=== PATIENT | female | born 1995 | race Caucasian/White ===

== ENCOUNTER 2020-01-11 22:57 | Emergency (ER) | payer OTHER, SELFPAY ==
[2020-01-11 23:11] VITALS: BP 169/122; PULSE 95; RESP 18; TEMP 36.7; O2SAT 99; BMI 30.8
--- NOTE | 2020-01-11 23:22 | ECG_ITS ---
Measurements Intervals [place] Rate: 109 P: 49 NE: 130 QRS: 14 QRSD: 90 T: -12 QT: 299 QTc: 403 SINUS TACHYCARDIA POSSIBLE LEFT ATRIAL ENLARGEMENT [-0.1mV P WAVE IN V1/V2] NONSPECIFIC ST & T-WAVE ABNORMALITY ABNORMAL RHYTHM ECG Compared to ECG 06/05/2019 03:24:03 No significant changes Electronically Signed On 01-12-2020 20:02:02 CDT by Krish Roldan M.D. [email or web address]
--- NOTE | 2020-01-11 23:22 | XR_ITS ---
WS: [id number] XR chest 1V portable [id number] REASON FOR EXAM: cp FINDINGS: The heart and mediastinal interfaces normal. The lung scott are well aerated. No pneumonia, pleural effusion, pulmonary edema, No interval changes since January 17, 2019. The hilum and apices normal. XR/XR chest 1V portable [id number] IMPRESSION: Negative chest for acute pathology.
--- NOTE | 2020-01-11 23:23 | ED_ITS ---
HPI - Chest Pain General: Chief Complaint: Chest Pain Stated Complaint: cp, arm pain Time Seen by Provider: 01/11/20 23:14 History of Present Illness: HPI narrative: Patient comes in complain about chest pain that started at 0 700 yesterday morning and is been intermittent since then but it was worse tonight. Says it is in her left chest goes into her left arm does not go in the neck denies nausea and vomiting or shortness of breath. Does have a history of pulmonary embolus with her . And she is worried it might be pulmonary embolus again denies any medications change in activities food or other related things complaint: chest pain Pertinent past history: other (Prior pulmonary embolus during ) Onset (ago): day(s) (Yesterday and today) Timing of current episode: increasing Prior episodes: Yes Onset: during rest Pain location: left chest Pain radiation: left arm Severity: moderate Quality: sharp Relieving factors: nothing Exacerbating factors: nothing Associated symptoms: Reports no associated symptoms; Deny abdominal pain, dyspnea, fever(s), nausea or vomiting Review of Systems Const: Denies: fever, chills or body aches Eyes: Denies: change in vision or blurry vision ENMT: Denies: throat pain or nasal congestion Card: Reports: chest pain (And left arm pain); Denies: shortness of breath on exertion Resp: Denies: shortness of breath, productive cough or non-productive cough GI: Denies: abdominal pain, nausea or vomiting Musc: Denies: extremity pain Skin/Breast: Denies: rash Neuro: Denies: headache Psych: Denies: anxiety or depression Tay/Lymph: Denies: easy bruising PFS ED PFSH: Social History Smoking and tobacco status: never smoked Female Reproductive History: Date of last menstrual period: 01/02/20 Physical Exam Const: COMMON NORMALS: no apparent distress, average body habitus and oriented x3 HENMT: COMMON NORMALS: normocephalic HEAD & SCALP: normal to inspection and normocephalic FACE & SINUS: normal facial exam Eye: COMMON NORMALS: conjunctivae normal GENERAL EYE: normal appearance of both eyes CONJUNCTIVA: Yes conjunctivae normal Neck/C-Spine: COMMON NORMALS: no JVD Chest: COMMONS NORMALS: inspection of chest normal Resp: COMMON NORMALS: normal respiratory effort and clear to auscultation bilaterally AUSCULTATION: clear to auscultation bilaterally Cardio: COMMON NORMALS: no JVD, regular rate and regular rhythm RATE: regular rate RHYTHM: regular rhythm GI: COMMON NORMALS: normal to inspection, nondistended, normoactive bowel so unds Extremity: COMMON NORMALS: normal to inspection and full ROM Neuro: COMMON NORMALS: oriented x3 Course Vital Signs: Vital signs: Vital Signs Temperature 98.1 F 01/11/20 23:11 Pulse Rate 95 01/11/20 23:11 Respiratory Rate 18 01/11/20 23:11 Blood Pressure 169/122 01/11/20 23:11 Pulse Oximetry 99 01/11/20 23:11 MDM - Chest Pain EKG Data^: EKG 1: EKG interpretation date: 01/11/20 EKG interpretation time: 23:27 Interpretation: Sinus tachycardia ventricular rate of [address] and T wave abnormalities QRS durations 90 ms [place] intervals 130 ms Discharge Plan Discharge Prescriptions: No Action No Known Home Medications RF: 0 Coding Level of Care Code 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
[2020-01-11 23:41] VITALS: PULSE 89; RESP 16; O2SAT 98
[2020-01-11 23:42] LABS: Basophils % 0.3 %; Eosinophils # 0.1 10^3/uL (0.0-0.8); Eosinophils % 0.8 %; Hematocrit 38.8 % (37.0-47.0); Hemoglobin 12.7 g/dL (11.5-15.3); Lymphocytes # 2.6 10^3/uL (0.8-4.8); Lymphocytes % 20.2 %; Mean Corpuscular HGB Conc 32.7 g/dL (30.0-36.0); Mean Corpuscular Hemoglobin 27.1 pg (28.0-34.0); Mean Corpuscular Volume 82.7 fL (81-99); Mean Platelet Volume 9.7 fL (7.4-10.4); Monocytes # 0.9 10^3/uL (0.2-0.9); Monocytes % 6.7 %; Neutrophils # 9.3 10^3/uL (1.8-7.7); Neutrophils % 71.7 %; Nucleated Red Blood Cells % 0 %; Platelet Count 464 10^3/cmm (130-400); Red Blood Count 4.69 10^6/uL (4.1-5.3); Red Cell Distribution Width 13.2 % (12.1-15.1)
[2020-01-11 23:45] VITALS: PULSE 107; RESP 16; O2SAT 97
[2020-01-11 23:48] LABS: INR 0.93 (0.8-1.2)
[2020-01-11 23:50] VITALS: PULSE 98; RESP 15; O2SAT 98
[2020-01-11 23:54] LABS: Alanine Aminotransferase 17 U/L (0-33); Albumin Level 5.1 g/dL (3.5-5.2); Alkaline Phosphatase 91 IU/L (35-105); Anion Gap 19.8 (5-19); Aspartate Amino Transferase 16 U/L (0-32); Blood Urea Nitrogen 10 mg/dL (6-20); Calcium 9.9 mg/dL (8.5-10.5); Carbon Dioxide 23 mmol/L (22-29); Chloride 102 mmol/L (98-107); Globulin 2.8 g/dL (1.3-4.6); Glomerular Filtration Rate 89.7 mL/min (90-130); Glucose 122 mg/dL (65-115); Osmolality Calculated 289 mOsm/kg (285-295); Potassium 3.8 mmol/L (3.5-5.1); Sodium 141 mmol/L (136-145); Total Bilirubin 0.2 mg/dL (0.15-1.2); Total Protein 7.9 g/dL (6.6-8.7)
[2020-01-11 23:55] VITALS: PULSE 99; RESP 16; O2SAT 98
[2020-01-11 23:55] LABS: Troponin(5th) Baseline 6 ng/mL (0-10)
[2020-01-12] VITALS (20 sets, daily range): BP systolic 108–137; BP diastolic 80–89; PULSE 73–117; RESP 11–26; O2SAT 97–99
[2020-01-12 00:24] LABS: HCG Qualitative Urine. Negative (Negative)
[2020-01-12 01:15] LABS: Bilirubin Urine Neg (NEGATIVE); Blood Urine Neg (Negative); Glucose Urine UA Norm (Normal); Ketones Urine Negative (Negative); Nitrate Urine Negative (Negative); Protein Urine Neg (Negative); Specific Gravity, Urine 1.015 (1.005-1.030); Urine Appearance SL Hazy (CLEAR); Urine Color Yellow (Yellow); Urobilinogen Urine Norm (Negative); pH Urine 5 (5-7)
[2020-01-12 01:16] LABS: Add Urine Microscopic? YES; Leukocyte Esterase Urine 2+ (Negative)
[2020-01-12 01:19] LABS: Troponin 5 2HR Delta 0 ABS# (0-10)
[2020-01-12 01:19] LABS: RBC Urine 0-4 /hpf (0-2); WBC Urine 25-40 /hpf (0-5)
[2020-01-12 01:20] LABS: Bacteria Urine 2+; Mucus Urine TRACE
[2020-01-12 01:21] LABS: Add Urine Culture? Yes
== END 2020-01-12 01:40 | disposition home or self-care (01) ==
PROVIDERS: Emergency Provider Nurse Practitioner Family; PCP Family Medicine
DX: R07.9 Chest pain, unspecified (principal)
CPT/HCPCS: 12345; 71045; 80053; 81001; 81025; 84484; 85025; 85378; 85610; 87077; 87086; 87186; 93005; 99283; 99284

== ENCOUNTER 2020-06-09 15:56 | Outpatient (CLI) | payer OTHER, SELFPAY ==
--- NOTE | 2020-06-09 | XRR_ITS ---
PROCEDURE INFORMATION: Exam: XR Chest, 2 Views Exam date and time: 06/09/2020 4:04 PM Age: 25 years old Clinical indication: Chest pain; Type not specified; Additional info: Chest pain x 2 month TECHNIQUE: Imaging protocol: XR of the chest Views: 2 views. COMPARISON: CR XR chest 1V portable [id number] 01/11/2020 11:54 PM FINDINGS: Lungs: Unremarkable. No consolidation. Pleural space: Unremarkable. No pleural effusion. No pneumothorax. Heart/Mediastinum: Unremarkable. No cardiomegaly. Bones/joints: Unremarkable. XR/XR chest 2V* [id number] IMPRESSION: No acute findings.
== END 2020-06-09 15:57 | disposition home or self-care (01) ==
LOC: RAD 15:57
PROVIDERS: Visit Provider Family Medicine
DX: R07.9 Chest pain, unspecified (principal)
CPT/HCPCS: 71046

== ENCOUNTER → 2020-07-22 09:27 | Outpatient (BNVA) | payer OTHER, SELFPAY | PROVIDERS: Visit Provider Internal Medicine | DX: R76.8 Other specified abnormal immunological findings in serum (principal); Z11.59 Encounter for screening for other viral diseases; R53.83 Other fatigue; R19.7 Diarrhea, unspecified; L65.9 Nonscarring hair loss, unspecified; Z86.711 Personal history of pulmonary embolism; Z87.59 Personal history of other complications of pregnancy, childbirth and the puerperium | CPT/HCPCS: 99203; 99205 ==

== ENCOUNTER 2020-07-22 11:05 | Outpatient (CLI) | payer OTHER, SELFPAY ==
[2020-07-22 11:26] LABS: Add Urine Microscopic? NO
[2020-07-22 11:35] LABS: Bilirubin Urine Neg (Negative); Blood Urine Neg (Negative); Glucose Urine UA Norm (Normal); Ketones Urine Negative (Negative); Leukocyte Esterase Urine Negative (Negative); Nitrate Urine Negative (Negative); Protein Urine Neg (Negative); Urine Appearance Clear (CLEAR); Urine Color Yellow (Yellow); Urobilinogen Urine Norm (Negative); pH Urine 5 (5-7)
[2020-07-22 11:42] LABS: Basophils # 0.1 10^3/uL (0.0-0.1); Basophils % 0.6 %; Eosinophils # 0.1 10^3/uL (0.0-0.8); Eosinophils % 0.8 %; Hematocrit 37.3 % (37.0-47.0); Hemoglobin 12.3 g/dL (11.5-15.3); Lymphocytes # 2.1 10^3/uL (0.8-4.8); Lymphocytes % 23.4 %; Mean Corpuscular Hemoglobin 27.5 pg (28.0-34.0); Mean Corpuscular Volume 83.4 fL (81-99); Mean Platelet Volume 9.4 fL (7.4-10.4); Monocytes # 0.6 10^3/uL (0.2-0.9); Monocytes % 6.5 %; Neutrophils # 6.23 10^3/uL (1.8-7.7); Neutrophils % 68.6 %; Nucleated Red Blood Cells % 0 %; Platelet Count 456 10^3/cmm (130-400); Red Blood Count 4.47 10^6/uL (4.1-5.3); Red Cell Distribution Width 12.8 % (12.1-15.1); White Blood Count 9.1 10^3/uL (4.0-10.0)
[2020-07-22 12:30] LABS: 25 Hydroxy Vitamin D 22 ng/mL (30-100); Alanine Aminotransferase 21 U/L (0-33); Albumin Level 4.6 g/dL (3.5-5.2); Alkaline Phosphatase 101 IU/L (35-105); Anion Gap 14.7 (5-19); Aspartate Amino Transferase 15 U/L (0-32); Blood Urea Nitrogen 8 mg/dL (6-20); C Reactive Protein 2.1 mg/L (0.0-4.9); Calcium 9.5 mg/dL (8.5-10.5); Carbon Dioxide 24 mmol/L (22-29); Chloride 101 mmol/L (98-107); Ferritin 79 ng/mL (15-150); Globulin 3.2 g/dL (1.3-4.6); Glomerular Filtration Rate 123.9 mL/min (90-130); Glucose 90 mg/dL (65-115); Iron 41 ug/dL (37-145); Osmolality Calculated 280 mOsm/kg (285-295); Phosphorus 2.8 mg/dL (2.5-4.5); Potassium 3.7 mmol/L (3.5-5.1); Sodium 136 mmol/L (136-145); Thyroid Stimulating Hormone 1.14 uIU/mL (0.27-4.20); Total Bilirubin 0.2 mg/dL (0.15-1.2); Total Protein 7.8 g/dL (6.6-8.7)
[2020-07-22 12:39] LABS: Erythrocyte Sedimentation Rate 34 mm/hr (0-15)
[2020-07-22 13:11] LABS: Free T4 Free Thyroxine 1.37 ng/dL (0.82-1.77)
[2020-07-22 13:37] LABS: Cortisol Random 5.44 ug/mL (2.47-19.5); Hepatitis B Surface Antigen Non-Reactive (Nonreactive); Hepatitis C Virus Antibody Non-Reactive (Nonreactive)
[2020-07-22 13:43] LABS: Hepatitis B Core AB, Total Non-Reactive (Nonreactive)
[2020-07-23 13:42] LABS: Cyclic Citrullinated Peptide <16 UNITS
[2020-07-25 02:18] LABS: Beta 2 Glycoprotein IGA <9 SAU (<=20); Beta 2 Glycoprotein IGG <9 SGU (<=20); Beta 2 Glycoprotein IGM <9 SMU (<=20)
[2020-07-25 19:22] LABS: Tissue Transglutaminase IgA Ab <1 U/mL; Tissue transglutaminase Ab.IgG 2 U/mL
[2020-07-26 01:23] LABS: Adrenocorticotropic Hormone 17 pg/mL (6-50); Immunoglobulin A 308 mg/dL (47-310)
[2020-07-26 03:17] LABS: CARDIOLIPIN AB (IGA) <11 APL; CARDIOLIPIN AB (IGG) <14 GPL; CARDIOLIPIN AB (IGM) <12 MPL
[2020-07-26 17:47] LABS: HLA-B27 NEGATIVE (NEGATIVE)
[2020-07-27 16:48] LABS: Gliadin Ab.IgA 11 U (<20); Gliadin Ab.IgG 2 U (<20)
[2020-07-28 05:18] LABS: LA-Interp Not Indicated; PTT-LA 38 sec (<=40); Prothrombin Time 35 sec (<=45)
== END 2020-07-22 11:06 | disposition home or self-care (01) ==
LOC: LAB 11:08
PROVIDERS: Visit Provider Internal Medicine
DX: R76.8 Other specified abnormal immunological findings in serum (principal); Z51.81 Encounter for therapeutic drug level monitoring; D86.9 Sarcoidosis, unspecified
CPT/HCPCS: 36415; 80053; 81003; 82024; 82306; 82533; 82728; 82784; 83516; 83540; 84100; 84439; 84443; 85025; 85613; 85651; 85730; 86140; 86146; 86147; 86431; 86704; 86803; 86812; 87340

== ENCOUNTER → 2020-08-11 15:25 | Outpatient (BNVA) | payer OTHER, SELFPAY | PROVIDERS: PCP Family Medicine; Visit Provider Internal Medicine | DX: R76.8 Other specified abnormal immunological findings in serum (principal); E55.9 Vitamin D deficiency, unspecified; R70.0 Elevated erythrocyte sedimentation rate; R79.89 Other specified abnormal findings of blood chemistry | CPT/HCPCS: 99214 ==

== ENCOUNTER → 2020-08-13 08:02 | Outpatient (BNVA) | payer OTHER, SELFPAY | PROVIDERS: PCP Family Medicine; Visit Provider Internal Medicine | DX: R79.89 Other specified abnormal findings of blood chemistry (principal); Z79.899 Other long term (current) drug therapy | CPT/HCPCS: 36415; 82533 ==

== ENCOUNTER → 2020-08-17 17:02 | Outpatient (BNVA) | payer OTHER, SELFPAY | PROVIDERS: PCP Family Medicine; Visit Provider Internal Medicine | DX: R79.89 Other specified abnormal findings of blood chemistry (principal); Z79.899 Other long term (current) drug therapy | CPT/HCPCS: 36415; 82024 ==

== ENCOUNTER 2020-09-01 12:48 | Emergency (ER) | payer OTHER, SELFPAY ==
[2020-09-01 12:51] VITALS: BP 163/106; PULSE 90; RESP 18; TEMP 36.6; O2SAT 100; BMI 33.0
--- NOTE | 2020-09-01 14:08 | CT_ITS ---
WS: [id number] CT HEAD TECHNIQUE: Noncontrast CT of the head obtained from the skullbase to the vertex. CLINICAL INFORMATION: headache, blurry vision COMPARISON: None. DLP: 750.[address] scans at [facility] use at least one of these dose optimization techniques: automat ed exposure control; mA and/or kV adjustment per patient size (includes targeted exams where dose is matched to clinical indication); or iterative reconstruction. FINDINGS: No evidence of intracranial hemorrhage or mass effect. Ventricular system and basal cisterns are au nt.No extra-axial fluid collections. No evidence of mass or mass effect. Normal de leon-white differenti ation. Paranasal sinuses and mastoid air cells are well aerated. .Normal visualized soft tissues. CT/CT head wo con* [id number] IMPRESSION: 1. No evidence of intracranial hemorrhage or mass effect. 2. Normal de leon-white differentiation. 3. No acute intracranial findings.
[2020-09-01 14:21] LABS: Basophils # 0.1 10^3/uL (0.0-0.1); Basophils % 0.8 %; Eosinophils # 0.1 10^3/uL (0.0-0.8); Hematocrit 37.4 % (37.0-47.0); Hemoglobin 12.4 g/dL (11.5-15.3); Lymphocytes # 1.7 10^3/uL (0.8-4.8); Lymphocytes % 21.4 %; Mean Corpuscular HGB Conc 33.2 g/dL (30.0-36.0); Mean Corpuscular Hemoglobin 27.5 pg (28.0-34.0); Mean Corpuscular Volume 82.9 fL (81-99); Mean Platelet Volume 9.6 fL (7.4-10.4); Monocytes # 0.8 10^3/uL (0.2-0.9); Monocytes % 10.8 %; Neutrophils # 5.09 10^3/uL (1.8-7.7); Neutrophils % 65.7 %; Nucleated Red Blood Cells % 0 %; Platelet Count 398 10^3/cmm (130-400); Red Blood Count 4.51 10^6/uL (4.1-5.3); Red Cell Distribution Width 12.4 % (12.1-15.1); White Blood Count 7.8 10^3/uL (4.0-10.0)
[2020-09-01 14:31] LABS: HCG, Serum Qual Negative (Negative)
[2020-09-01 14:38] LABS: Alanine Aminotransferase 103 U/L (0-33); Albumin Level 4.4 g/dL (3.5-5.2); Alkaline Phosphatase 105 IU/L (35-105); Anion Gap 15.8 (5-19); Aspartate Amino Transferase 87 U/L (0-32); Blood Urea Nitrogen 8 mg/dL (6-20); Calcium 9.4 mg/dL (8.5-10.5); Carbon Dioxide 25 mmol/L (22-29); Chloride 101 mmol/L (98-107); Globulin 3.5 g/dL (1.3-4.6); Glomerular Filtration Rate 103.7 mL/min (90-130); Glucose 88 mg/dL (65-115); Osmolality Calculated 284 mOsm/kg (285-295); Potassium 3.8 mmol/L (3.5-5.1); Sodium 138 mmol/L (136-145); Total Bilirubin 0.3 mg/dL (0.15-1.2); Total Protein 7.9 g/dL (6.6-8.7)
[2020-09-01] MEDS: ketorolac 30 mg/mL INJ 15 MG IVP (15:34)
[2020-09-01] MEDS: ondansetron 2 mg/ML SDV 2 mL 4 MG IVP (15:34)
[2020-09-01] MEDS: diphenhydrAMINE 50 mg/mL SDV 1mL 25 MG IVP (15:34)
[2020-09-01] MEDS: sodium chloride 0.9% 1,000 ML 999 ML IV (15:34)
[2020-09-01 16:10] LABS: Specific Gravity, Urine 1.015 (1.005-1.030); Urine Appearance Clear (CLEAR); Urine Color Yellow (Yellow); pH Urine 5 (5-7)
[2020-09-01 16:11] LABS: Add Urine Microscopic? YES; Bacteria Urine 1+ /hpf; Bilirubin Urine Neg (Negative); Blood Urine Neg (Negative); Glucose Urine UA Norm (Normal); Ketones Urine Negative (Negative); Leukocyte Esterase Urine Trace (Negative); Nitrate Urine Negative (Negative); Protein Urine Neg (Negative); RBC Urine 0-4 /hpf (0-2); Squamous Epithelial Cell Urine 0-4 /hpf (0-5); Urobilinogen Urine Norm (Negative)
[2020-09-01 16:12] LABS: Add Urine Culture? No
--- NOTE | 2020-09-01 16:12 | ED_ITS ---
HPI - Headache General: Chief Complaint: Headache Stated Complaint: pain behind eyes/blurry vision Time Seen by Provider: 09/01/20 14:07 History of Present Illness: HPI Narrative: The patient is a 25-year-old female who comes to the ER complaining of frontal headache. She took aspirin, caffeine, Tylenol formulation at home which mildly helped however she came to the ER because she was concerned about the blurry vision with it. Head CT is normal. She was given Benadryl, Zofran, IV fluids, and Toradol which helped resolve her headache completely. Stable for outpatient follow-up with primary care physician in a few days. Return to the ER with worsening symptoms. She says she does not usually get headaches and this was unusual for her and is the worst headache she has had. MD elicited complaint: headache Onset description: suddenly Location: frontal Severity: moderate Quality & Timing: throbbing, sharp and worst headache of life Associated symptoms: Reports nausea; Deny chest pain, confusion or rash Treatments prior to arrival: acetaminophen and migraine medication Review of Systems General: Reports: 10 or more systems reviewed and unremarkable except in HPI and below Const: Denies: fatigue Eyes: Denies: change in vision, blurry vision or eye redness ENMT: Denies: throat pain, swelling of lips/tongue, ear or mastoid pain or syd al congestion Card: Denies: chest pain, palpitations, irregular heart rhythm, edema, dyspnea on exertion or orthopnea Resp: Denies: dyspnea, productive cough or non-productive cough GI: Reports: nausea : Denies: flank pain, difficulty voiding, urinary frequency or urinary urgency Musc: Denies: neck pain, back pain, extremity pain, joint pain, joint redness, limited range of motion or muscle weakness Skin/Breast: Denies: rash, pruritus, erythema, skin pain or skin tenderness Neuro: Reports: headache(s); Denies: numbness in extremities, weakness in extremities, sensory changes, difficulty walking, dizziness, confusion or Slurred speech present Psych: Denies: anxiety or depression Endo: Denies: polyuria All/Imm: Denies: urticaria, throat swelling or tongue swelling PFSH ED PFSH: Medical History Hx of pulmonary embolus during Family History Mother Kidney disease Social History Smoking and tobacco status: never smoked Alcohol intake: never History of recent travel: No Female Reproductive History: Date of last menstrual period: 08/18/20 Physical Exam Const: COMMON NORMALS: no acute distress, average body habitus, patient oriented x3, no limitations, healthy appearing, alert and well nourished GENERAL APPEARANCE: cooperative, comfortable, well kempt and well developed ORIENTATION/CONSCIOUSNESS: Yes awake, Yes oriented to person, Yes oriented to place and Yes oriented to time HENMT: COMMON NORMALS: normocephalic, external ears normal and Normal external nose present HEAD & SCALP: normal to inspection and normocephalic NOSE: Normal external nose present EXTERNAL EAR: Yes external ears normal MOUTH: Normal oral and palatal mucosa present THROAT: posterior oropharynx normal Eye: COMMON NORMALS: Equal, round and reactive pupils present and EOMs intact bilaterally GENERAL EYE: appearance normal, both eyes and all related structures PUPIL: Yes Equal, round and reactive pupils present Neck/C-Spine: COMMON NORMALS: full ROM, no lymphadenopathy, no meningeal signs and no JVD GENERAL: Yes normal visual inspection Lymph: LYMPHATIC: no lymphadenopathy noted Chest: COMMONS NORMALS: normal inspection of the chest and normal palpation of entire chest wall Resp: COMMON NORMALS: normal respiratory effort, No retractions, No use of accessory muscles, clear to auscultation bilaterally and percussion normal EFFORT & INSPECTION: Yes able to speak in complete sentences AUSCULTATION: clear to auscultation bilaterally PERCUSSION: percussion normal Cardio: COMMON NORMALS: no JVD, regular rate, regular rhythm, S1 normal heart sound present, S2 normal heart sound present and Peripheral pulses 2+ throughout RATE: regular rate RHYTHM: regular rhythm HEART SOUNDS: S1 normal heart sound present and S2 normal heart sound present PERIPHERAL PULSES: Peripheral pulses 2+ throughout GI: COMMON NORMALS: Normal to inspection, nondistended, normoactive bowel sounds present, Soft to palpation, non-tender and no masses INSPECTION: Yes normal to inspection PALPATION: Yes Soft to palpation : COMMON NORMALS: Yes no CVA tenderness BLADDER/KIDNEY EXAM: Yes no CVA tenderness Back/Pelvis: COMMON NORMALS: no CVA tenderness, thoracic and lumbar spine normal to inspection, no thoracic nor lumbar tenderness and thoraco-lumbar ROM normal Extremity: COMMON NORMALS: normal to inspection, full ROM, capillary refill normal, no joint enlargement and no pedal edema GENERAL: Yes normal exam except as noted Neuro: COMMON NORMALS: patient oriented x3, CN's II-XII intact bilaterally, moves all extremities, no focal motor deficits, no sensory deficits noted and gait normal SENSORIUM/ORIENTATION: Yes alert, Yes oriented to person, Yes oriented to place and Yes oriented to time MENINGEAL SIGNS: Yes no meningeal signs Psych: COMMON NORMALS: mental status grossly normal, Normal thought process present, cooperative, normal affect and speech normal APPEARANCE: Yes well kempt ATTITUDE: Yes calm SPEECH: Yes normal speech THOUGHT PROCESS: Normal thought process present Skin: COMMON NORMALS: no rashes or lesions noted GENERAL SKIN EXAM: no rashes or lesions noted Course Vital Signs: Vital signs: Vital Signs Temperature 97.8 F 09/01/20 12:51 Pulse Rate 90 09/01/20 12:51 Respiratory Rate 18 09/01/20 12:51 Blood Pressure 163/106 09/01/20 12:51 Pulse Oximetry 100 09/01/20 12:51 MDM - Headache MDM Narrative: Medical decision making narrative: Patient came in with a frontal headache. Blurry vision resolved prior to arrival. CT head negative. Labs were normal. She was given Toradol, IV fluids, Benadryl, and her symptoms resolved completely. She will be discharged with Zofran. Follow-up with primary care physician in a couple days. Return to the ER with worsening symptoms. Differential Diagnosis: Differential diagnosis headache: Likely migraine and subarachnoid hemorrhage Lab Data: Labs: Lab Results 09/01/20 09/01/20 09/01/20 Range/Units 14:00 14:00 14:00 WBC 7.8 (4.0-10.0) 10^3/ uL RBC 4.51 (4.1-5.3) 10^6/u L Hgb 12.4 (11.5-15.3) g/dL Hct 37.4 (37.0-47.0) % MCV 82.9 (81-99) fL MCH 27.5 L (28.0-34.0) pg MCHC 33.2 (30.0-36.0) g/dL RDW 12.4 (12.1-15.1) % Plt Count 398 (130-400) 10^3/c mm MPV 9.6 (7.4-10.4) fL Neut % (Auto) 65.7 % Lymph % (Auto) 21.4 % [place] % (Auto) 10.8 % Eos % (Auto) 1.0 % Baso % (Auto) 0.8 % Neut # (Auto) 5.09 (1.8-7.7) 10^3/u L Lymph # (Auto) 1.7 (0.8-4.8) 10^3/u L [place] # (Auto) 0.8 (0.2-0.9) 10^3/u L Eos # (Auto) 0.1 (0.0-0.8) 10^3/u L Baso # (Auto) 0.1 (0.0-0.1) 10^3/u L Nucleated RBC % (a uto) 0 % Nucleated RBCs # 0.0 /100WBC Sodium 138 (136-145) mmol/L Potassium 3.8 (3.5-5.1) mmol/L Chloride 101 (98-107) mmol/L Carbon Dioxide 25 (22-29) mmol/L Anion Gap 15.8 (5-19) BUN 8 (6-20) mg/dL Creatinine 0.7 (0.5-0.9) mg/dL GFR Calculation 103.7 (90-130) mL/min Glucose 88 (65-115) mg/dL Calculated Osmolal ity 284 L (285-295) mOsm/k g Calcium 9.4 (8.5-10.5) mg/dL Total Bilirubin 0.3 (0.15-1.2) mg/dL AST 87 H (0-32) U/L ALT 103 H (0-33) U/L Alkaline Phosphata se 105 (35-105) IU/L Total Protein 7.9 (6.6-8.7) g/dL Albumin 4.4 (3.5-5.2) g/dL Globulin 3.5 (1.3-4.6) g/dL HCG, Qual Negative (Negative) Urine Color (Yellow) Urine Appearance (CLEAR) Urine pH (5-7) Ur Specific Gravit y (1.005-1.030) Urine Protein (Negative) Urine Glucose (UA) (Normal) Urine Ketones (Negative) Urine Blood (Negative) Urine Nitrate (Negative) Urine Bilirubin (Negative) Urine Urobilinogen (Negative) mg/dL Ur Leukocyte Zamzam ase (Negative) 09/01/20 Range/Units 15:40 WBC (4.0-10.0) 10^3/ uL RBC (4.1-5.3) 10^6/u L Hgb (11.5-15.3) g/dL Hct (37.0-47.0) % MCV (81-99) fL MCH (28.0-34.0) pg MCHC (30.0-36.0) g/dL RDW (12.1-15.1) % Plt Count (130-400) 10^3/c mm MPV (7.4-10.4) fL Neut % (Auto) % Lymph % (Auto) % [place] % (Auto) % Eos % (Auto) % Baso % (Auto) % Neut # (Auto) (1.8-7.7) 10^3/u L Lymph # (Auto) (0.8-4.8) 10^3/u L [place] # (Auto) (0.2-0.9) 10^3/u L Eos # (Auto) (0.0-0.8) 10^3/u L Baso # (Auto) (0.0-0.1) 10^3/u L Nucleated RBC % (a uto) % Nucleated RBCs # /100WBC Sodium (136-145) mmol/L Potassium (3.5-5.1) mmol/L Chloride (98-107) mmol/L Carbon Dioxide (22-29) mmol/L Anion Gap (5-19) BUN (6-20) mg/dL Creatinine (0.5-0.9) mg/dL GFR Calculation (90-130) mL/min Glucose (65-115) mg/dL Calculated Osmolal ity (285-295) mOsm/k g Calcium (8.5-10.5) mg/dL Total Bilirubin (0.15-1.2) mg/dL AST (0-32) U/L ALT (0-33) U/L Alkaline Phosphata se (35-105) IU/L Total Protein (6.6-8.7) g/dL Albumin (3.5-5.2) g/dL Globulin (1.3-4.6) g/dL HCG, Qual (Negative) Urine Color Yellow (Yellow) Urine Appearance Clear (CLEAR) Urine pH 5 (5-7) Ur Specific Gravit y 1.015 (1.005-1.030) Urine Protein Neg (Negative) Urine Glucose (UA) Norm (Normal) Urine Ketones Negative (Negative) Urine Blood Neg (Negative) Urine Nitrate Negative (Negative) Urine Bilirubin Neg (Negative) Urine Urobilinogen Norm (Negative) mg/dL Ur Leukocyte Zamzam ase Trace H (Negative) Discharge Plan Discharge Patient Disposition: Home Clinical Impression: Headache Condition: Stable Prescriptions: New Zofran 4 mg tablet 4 mg PO Q8H 4 Days Qty: 12 RF: 0 No Action ParaGard T 380A 380 square mm intrauterine device intrauterine RF: 0 cholecalciferol (vitamin D3) 1,250 mcg (50,000 unit) capsule 50,000 unit PO .qweek Qty: 14 RF: 0 prednisone 5 mg tablet See Rx Instructions PO DAILY Qty: 18 RF: 0 Discharge Orders: Discharge ED (Routine); Ordered 09/01/20 Ordered By: Ryan Buchanan Referrals: Jose Mccabe MD [Primary Care Provider] - Discharge Diet: Advance as tolerated Discharge Activity: Resume usual activity Patient Instructions: Acute Headache (ED) Activity Restrictions/Additional Instructions: You have a headache that has improved with medications. Please take the Zofran as needed to help with your nausea, otherwise you may take [id number] medicines to help with your headache. Return to the ER with worsening symptoms otherwise follow-up with your primary care physician in a couple days. Coding Level of Care Code ED Industrial Technologist for Huma Morse
[2020-09-01 16:39] VITALS: BP 138/88; PULSE 80; RESP 14; O2SAT 100
== END 2020-09-01 16:40 | disposition home or self-care (01) ==
PROVIDERS: Emergency Provider Family Medicine; PCP Family Medicine
DX: R51.9 Headache, unspecified (principal)
CPT/HCPCS: 12345; 70450; 80053; 81001; 84703; 85025; 96361; 96374; 96375; 99282; 99283; J1200; J1885; J2405; J7030

== ENCOUNTER → 2020-12-23 15:57 | Outpatient (BNVA) | payer OTHER, SELFPAY | PROVIDERS: PCP Family Medicine; Visit Provider Internal Medicine | DX: R76.8 Other specified abnormal immunological findings in serum (principal); R70.0 Elevated erythrocyte sedimentation rate; E55.9 Vitamin D deficiency, unspecified; R51.9 Headache, unspecified; R53.83 Other fatigue; Z86.711 Personal history of pulmonary embolism | CPT/HCPCS: 99214 ==

== ENCOUNTER 2020-12-25 11:54 | Outpatient (CLI) | payer OTHER, SELFPAY ==
[2020-12-25 12:26] LABS: Basophils # 0.1 10^3/uL (0.0-0.1); Basophils % 0.5 %; Eosinophils # 0.1 10^3/uL (0.0-0.8); Eosinophils % 0.8 %; Hemoglobin 12.4 g/dL (11.5-15.3); Lymphocytes # 2.4 10^3/uL (0.8-4.8); Lymphocytes % 24.3 %; Mean Corpuscular HGB Conc 33.5 g/dL (30.0-36.0); Mean Corpuscular Hemoglobin 27.8 pg (28.0-34.0); Mean Platelet Volume 9.4 fL (7.4-10.4); Monocytes # 0.7 10^3/uL (0.2-0.9); Monocytes % 6.7 %; Neutrophils % 67.6 %; Nucleated Red Blood Cells % 0 %; Platelet Count 431 10^3/cmm (130-400); Red Blood Count 4.46 10^6/uL (4.1-5.3); Red Cell Distribution Width 12.6 % (12.1-15.1); White Blood Count 9.8 10^3/uL (4.0-10.0)
[2020-12-25 12:26] LABS: Urine Appearance Cloudy (CLEAR); Urine Color Yellow (Yellow); pH Urine 5 (5-7)
[2020-12-25 12:27] LABS: Add Urine Microscopic? YES; Bilirubin Urine Neg (Negative); Blood Urine 3+ (Negative); Glucose Urine UA Norm (Normal); Ketones Urine Negative (Negative); Leukocyte Esterase Urine 1+ (Negative); Nitrate Urine Positive (Negative); Protein Urine Neg (Negative); Urobilinogen Urine Norm (Negative)
[2020-12-25 12:32] LABS: Bacteria Urine 4+ /hpf; RBC Urine 40-50 /hpf (0-2); Squamous Epithelial Cell Urine 0-4 /hpf (0-5)
[2020-12-25 12:33] LABS: Add Urine Culture? Yes
[2020-12-25 12:45] LABS: Alanine Aminotransferase 18 U/L (0-33); Albumin Level 4.6 g/dL (3.5-5.2); Alkaline Phosphatase 85 IU/L (35-105); Anion Gap 14.6 (5-19); Aspartate Amino Transferase 15 U/L (0-32); Blood Urea Nitrogen 12 mg/dL (6-20); Calcium 9.3 mg/dL (8.5-10.5); Carbon Dioxide 24 mmol/L (22-29); Chloride 101 mmol/L (98-107); Complement C3 157 mg/dL (90-180); Globulin 3.4 g/dL (1.3-4.6); Glomerular Filtration Rate 103.7 mL/min (90-130); Glucose 75 mg/dL (65-115); Osmolality Calculated 280 mOsm/kg (285-295); Potassium 3.6 mmol/L (3.5-5.1); Sodium 136 mmol/L (136-145); Total Bilirubin 0.2 mg/dL (0.15-1.2)
[2020-12-25 13:18] LABS: Erythrocyte Sedimentation Rate 28 mm/hr (0-15)
== END 2020-12-25 11:55 | disposition home or self-care (01) ==
PROVIDERS: PCP Family Medicine; Visit Provider Internal Medicine
DX: R70.0 Elevated erythrocyte sedimentation rate (principal)
CPT/HCPCS: 36415; 80053; 81001; 85025; 85651; 86160; 87077; 87086; 87186

== ENCOUNTER 2021-03-09 10:32 | Outpatient (CLI) | payer OTHER, MEDICAID, SELFPAY ==
[2021-03-09 11:05] LABS: Basophils % 0.6 %; Eosinophils # 0.1 10^3/uL (0.0-0.8); Eosinophils % 1.5 %; Lymphocytes # 2.3 10^3/uL (0.8-4.8); Lymphocytes % 33.9 %; Mean Corpuscular HGB Conc 33.3 g/dL (30.0-36.0); Mean Corpuscular Hemoglobin 28.3 pg (28.0-34.0); Mean Corpuscular Volume 84.8 fL (81-99); Mean Platelet Volume 9.5 fL (7.4-10.4); Monocytes # 0.5 10^3/uL (0.2-0.9); Monocytes % 7.5 %; Neutrophils # 3.76 10^3/uL (1.8-7.7); Neutrophils % 56.2 %; Nucleated Red Blood Cells % 0 %; Platelet Count 417 10^3/cmm (130-400); Red Cell Distribution Width 12.6 % (12.1-15.1); White Blood Count 6.7 10^3/uL (4.0-10.0)
[2021-03-09 11:22] LABS: Alanine Aminotransferase 21 U/L (0-33); Albumin Level 4.3 g/dL (3.5-5.2); Alkaline Phosphatase 86 IU/L (35-105); Anion Gap 14.3 (5-19); Aspartate Amino Transferase 19 U/L (0-32); Blood Urea Nitrogen 12 mg/dL (6-20); C Reactive Protein 1.7 mg/L (0.0-4.9); Calcium 9.2 mg/dL (8.5-10.5); Carbon Dioxide 25 mmol/L (22-29); Chloride 103 mmol/L (98-107); Globulin 3.4 g/dL (1.3-4.6); Glomerular Filtration Rate 102.8 mL/min (90-130); Glucose 94 mg/dL (65-115); Osmolality Calculated 286 mOsm/kg (285-295); Potassium 4.3 mmol/L (3.5-5.1); Sodium 138 mmol/L (136-145); Total Bilirubin 0.3 mg/dL (0.15-1.2); Total Protein 7.7 g/dL (6.6-8.7)
[2021-03-09 11:39] LABS: Erythrocyte Sedimentation Rate 21 mm/hr (0-15)
== END 2021-03-09 10:33 | disposition home or self-care (01) ==
LOC: LAB 10:38
PROVIDERS: PCP Family Medicine; Visit Provider Internal Medicine
DX: R70.0 Elevated erythrocyte sedimentation rate (principal); R76.8 Other specified abnormal immunological findings in serum; R79.89 Other specified abnormal findings of blood chemistry; G43.909 Migraine, unspecified, not intractable, without status migrainosus; Z79.899 Other long term (current) drug therapy
CPT/HCPCS: 36415; 80053; 85025; 85651; 86140

== ENCOUNTER → 2021-03-23 10:09 | Outpatient (BNVA) | payer OTHER, MEDICAID, SELFPAY | PROVIDERS: PCP Family Medicine; Visit Provider Internal Medicine | DX: G43.909 Migraine, unspecified, not intractable, without status migrainosus (principal); R70.0 Elevated erythrocyte sedimentation rate; R11.0 Nausea; R76.8 Other specified abnormal immunological findings in serum | CPT/HCPCS: 99214 ==

== ENCOUNTER 2021-04-15 13:02 | Outpatient (CLI) | payer OTHER, MEDICAID, SELFPAY ==
--- NOTE | 2021-04-15 13:07 | XR_ITS ---
WS: [id number] Cervical spine, 5 views including obliques, 04/15/2021 Clinical Data: RIGHT CERVICAL RADICULOPATHY Comparison: Cervical spine, 04/26/2011. Findings: No compression fractures are seen. The disc heights are normal. There is no prevertebral so ft tissue swelling. The odontoid is unremarkable. The soft tissues of the neck and the lung apices ar e normal. The oblique films show no foraminal encroachment. XR/XR cervical spine 4-5V [id number] Impression: Negative cervical spine.
== END 2021-04-15 13:03 | disposition home or self-care (01) ==
PROVIDERS: PCP Family Medicine; Visit Provider Family Medicine
DX: M54.12 Radiculopathy, cervical region (principal)
CPT/HCPCS: 72050

== ENCOUNTER 2021-05-03 08:30 | Outpatient (CLI) | payer OTHER, MEDICAID, SELFPAY ==
--- NOTE | 2021-05-03 08:38 | MR_ITS ---
WS: [id number] MRI CERVICAL SPINE NONCONTRAST AND CONTRAST TECHNIQUE: Sagittal T1, T2 and STIR imaging. Axial T2, gradient, and fiesta imaging. Post gadolinium imaging was obtained CLINICAL INFORMATION: CERVICAL RADICULOPATHY RIGHT/WEAKNESS RIGHT ARM COMPARISON: None. FINDINGS: Straightening of the normal cervical lordosis. Cord signal is normal. No high-grade central canal no nosis. No abnormal gadolinium enhancement. C2-C3: Normal. C3-C4: Mild disc bulge with endplate ridging. Spinal canal and foramen are patent. C4-C5: Normal. C5-C6: No significant disc bulging. Spinal canal and foramen are patent. C6-C7: Left eccentric disc bulging with mild left and no significant right foraminal narrowing. Spina l canal is patent. C7-T1: Mild left and no significant right foraminal narrowing. Spinal canal is patent. Visualized brain stem structures: Normal. Prevertebral soft tissues: Normal. MR/MR cervical spine wo/w [id number] IMPRESSION: 1. Straightening of the normal cervical lordosis. Cord signal is normal. No hi gh-grade central canal narrowing. 2. No abnormal gadolinium enhancement. 3. Mild left foraminal narrowing C6-C7 and C7-T1. 4. No other significant findings.
[2021-05-03] MEDS: gadobenate dimeglumine 20 mL vial IV (09:31)
== END 2021-05-03 08:31 | disposition home or self-care (01) ==
PROVIDERS: PCP Family Medicine; Visit Provider Family Medicine
DX: M54.12 Radiculopathy, cervical region (principal); R53.1 Weakness
CPT/HCPCS: 72156; A9577

== ENCOUNTER 2021-05-18 14:26 | Outpatient (CLI) | payer OTHER, MEDICAID, SELFPAY ==
--- NOTE | 2021-05-18 14:33 | MR_ITS ---
WS: [id number] MRI HEAD WITH CONTRAST TECHNIQUE: Sagittal T1, T2 axial, T2 axial FLAIR, axial susceptibility weighted imaging, axial diffus ion weighted images, and coronal T2 images were obtained. Pre and post-T1 axial and post T1 coronal i mages. ADC and FSPGR images. CLINICAL INFORMATION: WEAKNESS OF RIGHT ARM/ NUMBNESS, HAND AND FEET COMPARISON: CT September 01, 2020 FINDINGS: No evidence of restricted diffusion to suggest acute ischemia. Ventricular system and basal cisterns are patent. Normal de leon-white differentiation. No suspicious intracranial signal abnormalities. Radha l posterior fossa. Normal vascular flow voids at the skull base. No extra-axial fluid collections. No evidence of mass or mass effect. Paranasal sinuses and mastoid air cells are well aerated. No hemosiderin on susceptibly weighted imag es. Normal optic chiasm and pituitary infundibulum. Temporal lobes and hippocampal formations are nor mal in appearance. Normal cavernous sinuses and Meckel's cave. Prominent adenoid tissue in the posterior nasopharynx normal for patient this age. No abnormal gadoli nium enhancement. Normal dural venous sinuses. MR/MR head wo/w con [id number] IMPRESSION: 1. No evidence of restricted diffusion to suggest acute ischemia. 2. No suspicious intracranial signal abnormalities. Normal de leon-white differen tiation. 3. Normal optic chiasm and pituitary infundibulum. Normal cavernous sinuses an d Meckel's cave. 4. Paranasal sinuses and mastoid air cells well aerated. 5. Normal temporal lobes and hippocampal formations. 6. No other significant findings.
[2021-05-18] MEDS: gadobenate dimeglumine 20 mL vial IV (15:14)
== END 2021-05-18 14:27 | disposition home or self-care (01) ==
PROVIDERS: PCP Family Medicine; Visit Provider Family Medicine
DX: R53.1 Weakness (principal); R20.2 Paresthesia of skin; R20.0 Anesthesia of skin
CPT/HCPCS: 70553; A9577

== ENCOUNTER → 2021-05-31 10:58 | Outpatient (BNVA) | payer OTHER, MEDICAID, SELFPAY | PROVIDERS: PCP Family Medicine; Referring Provider Internal Medicine; Visit Provider Specialist | DX: G43.709 Chronic migraine without aura, not intractable, without status migrainosus (principal) | CPT/HCPCS: 99204 ==

== ENCOUNTER 2021-06-08 15:13 | Outpatient (CLI) | payer OTHER, MEDICAID, SELFPAY ==
[2021-06-08 15:42] LABS: Basophils % 0.3 %; Eosinophils # 0.1 10^3/uL (0.0-0.8); Hematocrit 36.7 % (37.0-47.0); Hemoglobin 12.3 g/dL (11.5-15.3); Lymphocytes # 3.6 10^3/uL (0.8-4.8); Lymphocytes % 29.5 %; Mean Corpuscular HGB Conc 33.5 g/dL (30.0-36.0); Mean Corpuscular Hemoglobin 28.3 pg (28.0-34.0); Mean Corpuscular Volume 84.6 fl (81-99); Mean Platelet Volume 9.3 fL (7.4-10.4); Monocytes # 0.9 10^3/uL (0.2-0.9); Monocytes % 7.3 %; Neutrophils # 7.46 10^3/uL (1.8-7.7); Neutrophils % 61.6 %; Nucleated Red Blood Cells % 0 %; Platelet Count 445 10^3/cmm (130-400); Red Blood Count 4.34 10^6/uL (4.1-5.3); Red Cell Distribution Width 12.5 % (12.1-15.1); White Blood Count 12.1 10^3/uL (4.0-10.0)
[2021-06-08 16:13] LABS: Alanine Aminotransferase 17 U/L (0-33); Albumin Level 4.4 g/dL (3.5-5.2); Alkaline Phosphatase 92 IU/L (35-105); Anion Gap 14.2 (5-19); Aspartate Amino Transferase 15 U/L (0-32); Blood Urea Nitrogen 10 mg/dL (6-20); C Reactive Protein 3.2 mg/L (0.0-4.9); Calcium 9.5 mg/dL (8.5-10.5); Carbon Dioxide 24 mmol/L (22-29); Chloride 103 mmol/L (98-107); Globulin 3.2 g/dL (1.3-4.6); Glomerular Filtration Rate 122.8 mL/min (90-130); Glucose 88 mg/dL (65-115); Osmolality Calculated 284 mOsm/kg (285-295); Potassium 3.2 mmol/L (3.5-5.1); Sodium 138 mmol/L (136-145); Total Bilirubin 0.2 mg/dL (0.15-1.2); Total Protein 7.6 g/dL (6.6-8.7)
[2021-06-09 13:28] LABS: Erythrocyte Sedimentation Rate 17 mm/hr (0-15)
== END 2021-06-08 15:14 | disposition home or self-care (01) ==
LOC: LAB 15:18
PROVIDERS: PCP Family Medicine; Visit Provider Internal Medicine
DX: G43.909 Migraine, unspecified, not intractable, without status migrainosus (principal); R70.0 Elevated erythrocyte sedimentation rate; R76.8 Other specified abnormal immunological findings in serum; R79.89 Other specified abnormal findings of blood chemistry; Z79.899 Other long term (current) drug therapy
CPT/HCPCS: 80053; 85025; 85651; 86140

== ENCOUNTER → 2021-06-09 08:57 | Outpatient (BNVA) | payer OTHER, MEDICAID, SELFPAY | PROVIDERS: PCP Family Medicine; Visit Provider Internal Medicine | DX: R76.8 Other specified abnormal immunological findings in serum (principal); R79.89 Other specified abnormal findings of blood chemistry; R70.0 Elevated erythrocyte sedimentation rate; R53.83 Other fatigue; R51.9 Headache, unspecified; R19.7 Diarrhea, unspecified | CPT/HCPCS: 80053; 81001; 81003; 82550; 84155; 84165; 85025; 85651; 86140; 99214 ==

== ENCOUNTER 2021-08-26 11:21 | Outpatient (CLI) | payer OTHER, BC, SELFPAY ==
[2021-08-26 11:58] LABS: Basophils # 0.1 10^3/uL (0.0-0.1); Basophils % 0.4 %; Eosinophils # 0.1 10^3/uL (0.0-0.8); Eosinophils % 0.9 %; Hematocrit 38.8 % (37.0-47.0); Hemoglobin 13.1 g/dL (11.5-15.3); Lymphocytes # 2.5 10^3/uL (0.8-4.8); Lymphocytes % 19.2 %; Mean Corpuscular HGB Conc 33.8 g/dL (30.0-36.0); Mean Corpuscular Hemoglobin 28.1 pg (28.0-34.0); Mean Corpuscular Volume 83.3 fl (81-99); Mean Platelet Volume 9.8 fL (7.4-10.4); Monocytes # 1.2 10^3/uL (0.2-0.9); Neutrophils # 8.97 10^3/uL (1.8-7.7); Neutrophils % 70.3 %; Nucleated Red Blood Cells % 0 %; Platelet Count 423 10^3/cmm (130-400); Red Blood Count 4.66 10^6/uL (4.1-5.3); Red Cell Distribution Width 12.5 % (12.1-15.1); White Blood Count 12.8 10^3/uL (4.0-10.0)
[2021-08-26 12:15] LABS: Erythrocyte Sedimentation Rate 19 mm/hr (0-15)
[2021-08-26 12:18] LABS: Alanine Aminotransferase 19 U/L (0-33); Albumin Level 4.6 g/dL (3.5-5.2); Alkaline Phosphatase 98 IU/L (35-105); Anion Gap 20.9 (5-19); Aspartate Amino Transferase 13 U/L (0-32); Blood Urea Nitrogen 10 mg/dL (6-20); C Reactive Protein 17.5 mg/L (0.0-4.9); Calcium 9.1 mg/dL (8.5-10.5); Carbon Dioxide 19 mmol/L (22-29); Chloride 99 mmol/L (98-107); Complement C3 158 mg/dL (90-180); Creatine Phosphokinase 52 U/L (26-192); Globulin 3.7 g/dL (1.3-4.6); Glomerular Filtration Rate 102.8 mL/min (90-130); Glucose 81 mg/dL (65-115); Osmolality Calculated 278 mOsm/kg (285-295); Potassium 3.9 mmol/L (3.5-5.1); Sodium 135 mmol/L (136-145); Total Bilirubin 0.3 mg/dL (0.15-1.2); Total Protein 8.3 g/dL (6.6-8.7)
[2021-08-26 12:21] LABS: Add Urine Microscopic? YES; Bilirubin Urine Neg (Negative); Blood Urine 2+ (Negative); Glucose Urine UA Norm (Normal); Ketones Urine Negative (Negative); Leukocyte Esterase Urine Negative (Negative); Nitrate Urine Negative (Negative); Protein Urine Neg (Negative); Specific Gravity, Urine 1.025 (1.005-1.030); Urine Appearance Clear (CLEAR); Urine Color Yellow (Yellow); Urobilinogen Urine 1 mg/dL (Negative); pH Urine 5 (5-7)
[2021-08-26 12:22] LABS: Add Urine Culture? No; Bacteria Urine TRACE /hpf; Mucus Urine 1+ /hpf; RBC Urine 0-4 /hpf (0-2); WBC Urine 0-4 /hpf (0-5)
[2021-08-27 06:38] LABS: PROTEIN, TOTAL 7.7 g/dL (6.1-8.1)
[2021-08-27 12:33] LABS: ALBUMIN 4.1 g/dL (3.8-4.8); ALPHA 1 GLOBULIN 0.4 g/dL (0.2-0.3); ALPHA 2 GLOBULIN 0.8 g/dL (0.5-0.9); BETA 1 GLOBULIN 0.5 g/dL (0.4-0.6); BETA 2 GLOBULIN 0.5 g/dL (0.2-0.5); GAMMA GLOBULIN 1.4 g/dL (0.8-1.7)
== END 2021-08-26 11:22 | disposition home or self-care (01) ==
LOC: LAB 11:27
PROVIDERS: PCP Family Medicine; Visit Provider Internal Medicine
DX: R53.83 Other fatigue (principal); R70.0 Elevated erythrocyte sedimentation rate; R76.8 Other specified abnormal immunological findings in serum; R79.89 Other specified abnormal findings of blood chemistry; Z79.899 Other long term (current) drug therapy
CPT/HCPCS: 80053; 81001; 82550; 84155; 84165; 85025; 85651; 86140; 86160

== ENCOUNTER 2021-12-14 09:03 | Outpatient (CLI) | payer OTHER, BC, MEDICAID, SELFPAY ==
[2021-12-14 09:25] LABS: Basophils # 0.1 10^3/uL (0.0-0.1); Basophils % 0.6 %; Eosinophils # 0.1 10^3/uL (0.0-0.8); Hematocrit 36.3 % (37.0-47.0); Hemoglobin 12.4 g/dL (11.5-15.3); Lymphocytes # 2.5 10^3/uL (0.8-4.8); Lymphocytes % 28.2 %; Mean Corpuscular HGB Conc 34.2 g/dL (30.0-36.0); Mean Corpuscular Hemoglobin 28.5 pg (28.0-34.0); Mean Corpuscular Volume 83.4 fl (81-99); Mean Platelet Volume 9.6 fL (7.4-10.4); Monocytes # 0.7 10^3/uL (0.2-0.9); Monocytes % 7.8 %; Neutrophils # 5.39 10^3/uL (1.8-7.7); Neutrophils % 62.2 %; Nucleated Red Blood Cells % 0 %; Platelet Count 411 10^3/cmm (130-400); Red Blood Count 4.35 10^6/uL (4.1-5.3); Red Cell Distribution Width 12.8 % (12.1-15.1); White Blood Count 8.7 10^3/uL (4.0-10.0)
[2021-12-14 09:46] LABS: Erythrocyte Sedimentation Rate 18 mm/hr (0-15)
[2021-12-14 09:58] LABS: Alanine Aminotransferase 27 U/L (0-33); Albumin Level 4.5 g/dL (3.5-5.2); Alkaline Phosphatase 98 IU/L (35-105); Anion Gap 14.3 (5-19); Aspartate Amino Transferase 20 U/L (0-32); Blood Urea Nitrogen 11 mg/dL (6-20); C Reactive Protein 4.8 mg/L (0.0-4.9); Calcium 9.9 mg/dL (8.5-10.5); Carbon Dioxide 22 mmol/L (22-29); Chloride 102 mmol/L (98-107); Complement C3 155 mg/dL (90-180); Globulin 2.9 g/dL (1.3-4.6); Glomerular Filtration Rate 102.8 mL/min (90-130); Glucose 100 mg/dL (65-115); Osmolality Calculated 277 mOsm/kg (285-295); Potassium 4.3 mmol/L (3.5-5.1); Sodium 134 mmol/L (136-145); Total Bilirubin 0.3 mg/dL (0.15-1.2); Total Protein 7.4 g/dL (6.6-8.7)
[2021-12-14 10:07] LABS: Urine Appearance Hazy (CLEAR); Urine Color Yellow (Yellow)
[2021-12-14 10:08] LABS: Add Urine Microscopic? YES; Bilirubin Urine Neg (Negative); Blood Urine Neg (Negative); Glucose Urine UA Norm (Normal); Ketones Urine Negative (Negative); Leukocyte Esterase Urine 2+ (Negative); Nitrate Urine Negative (Negative); Protein Urine Neg (Negative); Urobilinogen Urine Norm (Negative); pH Urine 5 (5-7)
[2021-12-14 10:17] LABS: Add Urine Culture? No; Bacteria Urine 2+ /hpf; Squamous Epithelial Cell Urine 25-40 /hpf (0-5); WBC Urine 25-40 /hpf (0-5)
== END 2021-12-14 09:04 | disposition home or self-care (01) ==
LOC: LAB 09:05
PROVIDERS: PCP Family Medicine; Visit Provider Internal Medicine
DX: R76.8 Other specified abnormal immunological findings in serum (principal); Z79.899 Other long term (current) drug therapy
CPT/HCPCS: 80053; 81001; 85025; 85651; 86140; 86160

== ENCOUNTER → 2022-05-10 11:22 | Outpatient (BNVA) | payer OTHER, BC, MEDICAID, SELFPAY | PROVIDERS: PCP Family Medicine; Visit Provider Family Medicine | DX: Z00.00 Encounter for general adult medical examination without abnormal findings (principal); R87.619 Unspecified abnormal cytological findings in specimens from cervix uteri; Z51.81 Encounter for therapeutic drug level monitoring; N92.6 Irregular menstruation, unspecified; R70.0 Elevated erythrocyte sedimentation rate; R79.89 Other specified abnormal findings of blood chemistry; G43.909 Migraine, unspecified, not intractable, without status migrainosus; R76.8 Other specified abnormal immunological findings in serum | CPT/HCPCS: 80053; 84443; 85025; 87624 ==

== ENCOUNTER 2022-10-12 12:16 | Outpatient (CLI) | payer OTHER, BC, MEDICAID, SELFPAY ==
[2022-10-12 13:57] LABS: Basophils % 0.4 %; Eosinophils # 0.1 10^3/uL (0.0-0.8); Hematocrit 39.7 % (37.0-47.0); Hemoglobin 12.8 g/dL (11.5-15.3); Lymphocytes # 2.6 10^3/uL (0.8-4.8); Lymphocytes % 29.3 %; Mean Corpuscular HGB Conc 32.2 g/dL (30.0-36.0); Mean Corpuscular Hemoglobin 27.9 pg (28.0-34.0); Mean Corpuscular Volume 86.5 fl (81-99); Mean Platelet Volume 9.9 fL (7.4-10.4); Monocytes # 0.6 10^3/uL (0.2-0.9); Monocytes % 6.2 %; Neutrophils % 62.8 %; Nucleated Red Blood Cells % 0 %; Platelet Count 375 10^3/cmm (130-400); Red Blood Count 4.59 10^6/uL (4.1-5.3); Red Cell Distribution Width 12.6 % (12.1-15.1); White Blood Count 8.9 10^3/uL (4.0-10.0)
[2022-10-12 14:07] LABS: Erythrocyte Sedimentation Rate 24 mm/hr (0-15)
[2022-10-12 14:24] LABS: Alanine Aminotransferase 26 U/L (0-33); Albumin Level 4.2 g/dL (3.5-5.2); Alkaline Phosphatase 102 U/L (35-105); Blood Urea Nitrogen 17 mg/dL (6-20); C Reactive Protein 4.4 mg/L (0.0-4.9); Calcium 10.4 mg/dL (8.5-10.5); Carbon Dioxide 20 mmol/L (22-29); Chloride 102 mmol/L (98-107); Globulin 3.5 g/dL (1.3-4.6); Glucose 75 mg/dL (65-115); Osmolality Calculated 282 mOsm/kg (285-295); Sodium 136 mmol/L (136-145); Total Bilirubin 0.2 mg/dL (0.15-1.2); Total Protein 7.7 g/dL (6.6-8.7)
[2022-10-12 14:26] LABS: Anion Gap 18.6 (5-19); Potassium 4.6 mmol/L (3.5-5.1)
[2022-10-12 14:27] LABS: Aspartate Amino Transferase 25 U/L (0-32)
== END 2022-10-12 12:17 | disposition home or self-care (01) ==
LOC: LAB 12:19
PROVIDERS: PCP Family Medicine; Visit Provider Internal Medicine
DX: R76.8 Other specified abnormal immunological findings in serum (principal)
CPT/HCPCS: 36415; 80053; 85025; 85651; 86140

== ENCOUNTER → 2022-10-13 10:58 | Outpatient (BNVA) | payer OTHER, BC, MEDICAID, SELFPAY | PROVIDERS: PCP Family Medicine; Visit Provider Internal Medicine | DX: R70.0 Elevated erythrocyte sedimentation rate (principal) | CPT/HCPCS: 36415; 80053; 82550; 83735; 84100; 84443; 85025 ==

== ENCOUNTER 2022-10-27 20:00 | Emergency (ER) | payer OTHER, BC, MEDICAID, SELFPAY ==
[2022-10-27 20:17] VITALS: BP 127/85; PULSE 113; RESP 16; TEMP 37; O2SAT 97
--- NOTE | 2022-10-27 20:34 | ED_ITS ---
HPI - Back Pain/Injury General: Chief Complaint: Back Pain/Injury Stated Complaint: Upper Back Dim[place]\Rt SidSOB Time Seen by Provider: 10/27/22 20:34 History of Present Illness: 27-year-old female comes in today for complaints of some left anterior chest wall pain. Patient has had pain since Monday. Patient been using some ibuprofen and then was evaluated at [facility] emergency room in [place] at that time they felt that patient probably had some musculoskeletal pain and treated with naproxen and gabapentin. 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 Patient appears no ntoxic. Patient reported no fever. Patient does appear in moderate to severe pain. Patient reports no other chronic medical problems. Patient does have a child at home. 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 Associated symptoms: Deny fever(s), nausea or vomiting Review of Systems General: Reports: 10 or more systems reviewed and unremarkable except in HPI and below Const: Denies: fever(s) ENMT: Denies: throat pain Card: Reports: chest pain Resp: Denies: dyspnea or productive cough GI: Denies: nausea or vomiting : Denies: difficulty voiding Musc: Denies: neck pain or back pain Skin/Breast: Denies: rash Neuro: Denies: headache(s) PFSH ED PFSH: Medical History (Updated 10/27/22 @ 21:57 by SHANIA Henry) Diarrhea Hx of pulmonary embolus during Surgical History History of appendectomy History of placement of ear tubes Family History Mother Kidney disease Social History Smoking and tobacco status: never smoked Alcohol intake: current Alcohol intake frequency: holidays/special occasions only Physical Exam Const: COMMON NORMALS: alert HENMT: COMMON NORMALS: normocephalic HEAD & SCALP: normocephalic Neck/C-Spine: COMMON NORMALS: full ROM and no meningeal signs Chest: CHEST: Yes tenderness (Left anterior lower rib pain) Resp: COMMON NORMALS: normal respiratory effort and clear to auscultation bilaterally AUSCULTATION: clear to auscultation bilaterally Cardio: COMMON NORMALS: regular rate and regular rhythm RATE: regular rate RHYTHM: regular rhythm GI: COMMON NORMALS: Soft to palpation and non-tender PALPATION: Yes Soft to palpation : COMMON NORMALS: Yes no CVA tenderness BLADDER/KIDNEY EXAM: Yes no CVA tenderness Back/Pelvis: COMMON NORMALS: no CVA tenderness THORACIC SPINE/UPPER BACK: No thoracic spinal tenderness LUMBAR SPINE/LOWER BACK: No lumbar spinal tenderness Extremity: COMMON NORMALS: normal to inspection Neuro: SENSORIUM/ORIENTATION: Yes alert MENINGEAL SIGNS: Yes no meningeal signs Skin: COMMON NORMALS: turgor normal GENERAL SKIN EXAM: turgor normal Course Vital Signs: Vital signs: Vital Signs Temperature 98.6 F 10/27/22 20:17 Pulse Rate 113 H 10/27/22 20:17 Respiratory Rate 16 10/27/22 20:17 Blood Pressure 127/85 10/27/22 20:17 Pulse Oximetry 97 10/27/22 20:17 Oxygen Delivery Me thod 10/27/22 20:17 MDM - Back Pain/Injury Medical Decision Making 27-year-old female comes in today for complaints of left anterior chest wall pain. On exam patient has tenderness on palpation of the chest, lungs are clear to auscultation, heart tones are normal. Vital signs are normal except for some elevation in heart rate of 113 bpm. Patient is afebrile. Abdomen soft nontender. No edema is noted in the extremities. Differential diagnosis includ es but not limited to myocarditis, gallbladder disease, gastritis, costochondritis, rib fracture, pleurisy. Chest x-ray was unremarkable. CBC and CMP were notable for some mild elevation white blood cell count 13,000, CRP was slightly elevated 24, troponin was 6, D-dimer was 0.46, EKG showed some sinus tachycardia. Feel the patient probably most likely has costochondritis but is further evaluated due to sinus tachycardia on the EKG. Was given a hydrocodone for pain with good results. Recommend follow-up with primary care for further instructions. Return to ED for new concerns. Labs 10/27/22 21:08 10/27/22 21:08 Radiology Impressions Ribs X-Ray 10/27/22 20:41 IMPRESSION: No acute findings. Laboratory Results WBC 13.5 10^3/uL (4.0-10.0) H 10/27/22 21:08 RBC 4.71 10^6/uL (4.1-5.3) 10/27/22 21:08 Hgb 12.9 g/dL (11.5-15.3) 10/27/22 21:08 Hct 39.4 % (37.0-47.0) 10/27/22 21:08 MCV 83.7 fl (81-99) 10/27/22 21:08 MCH 27.4 pg (28.0-34.0) L 10/27/22 21:08 MCHC 32.7 g/dL (30.0-36.0) 10/27/22 21:08 RDW 12.4 % (12.1-15.1) 10/27/22 21:08 Plt Count 400 10^3/cmm (130-400) 10/27/22 21:08 MPV 9.4 fL (7.4-10.4) 10/27/22 21:08 Neut % (Auto) 67.6 % 10/27/22 21:08 Lymph % (Auto) 21.8 % 10/27/22 21:08 [place] % (Auto) 9.4 % 10/27/22 21:08 Eos % (Auto) 0.6 % 10/27/22 21:08 Baso % (Auto) 0.3 % 10/27/22 21:08 Neut # (Auto) 9.11 10^3/uL (1.8-7.7) H 10/27/22 21:08 Lymph # (Auto) 2.9 10^3/uL (0.8-4.8) 10/27/22 21:08 [place] # (Auto) 1.3 10^3/uL (0.2-0.9) H 10/27/22 21:08 Eos # (Auto) 0.1 10^3/uL (0.0-0.8) 10/27/22 21:08 Baso # (Auto) 0.0 10^3/uL (0.0-0.1) 10/27/22 21:08 Nucleated RBC % (auto) 0 % 10/27/22 21:08 Nucleated RBCs # 0.0 /100WBC 10/27/22 21:08 ESR 10 mm/hr (0-15) 10/27/22 21:08 D-Dimer 0.45 ug/mIFEU (0-0.59) 10/27/22 21:08 Sodium 137 mmol/L (136-145) 10/27/22 21:08 Potassium 4.0 mmol/L (3.5-5.1) 10/27/22 21:08 Chloride 100 mmol/L (98-107) 10/27/22 21:08 Carbon Dioxide 24 mmol/L (22-29) 10/27/22 21:08 Anion Gap 17.0 (5-19) 10/27/22 21:08 BUN 9 mg/dL (6-20) 10/27/22 21:08 Creatinine 0.7 mg/dL (0.5-0.9) 10/27/22 21:08 GFR Calculation 102.0 mL/min (90-130) 10/27/22 21:08 Glucose 90 mg/dL (65-115) 10/27/22 21:08 Calculated Osmolality 282 mOsm/kg (285-295) L 10/27/22 21:08 Calcium 9.6 mg/dL (8.5-10.5) 10/27/22 21:08 Total Bilirubin 0.2 mg/dL (0.15-1.2) 10/27/22 21:08 AST 30 U/L (0-32) 10/27/22 21:08 ALT 64 U/L (0-33) H 10/27/22 21:08 Alkaline Phosphatase 112 U/L (35-105) H 10/27/22 21:08 Troponin T Gen 5 ng/L 6 ng/L (0-10) 10/27/22 21:08 C-Reactive Protein 24.9 mg/L (0.0-4.9) H 10/27/22 21:08 Total Protein 8.1 g/dL (6.6-8.7) 10/27/22 21:08 Albumin 4.3 g/dL (3.5-5.2) 10/27/22 21:08 Globulin 3.8 g/dL (1.3-4.6) 10/27/22 21:08 Lipase 37 U/L (13-60) 10/27/22 21:08 TSH 3.00 uIU/mL (0.27-4.20) 10/27/22 21:08 EKG Data EKG 1: EKG interpretation date: 10/27/22 EKG interpretation time: 21:13 Prior EKG tracings: not available for review Interpretation: EKG shows a sinus tachycardia with a regular rate in the 120s. No ST elevation or ectopy is noted. No prior exam was available for comparison. Discharge Plan Discharge Patient Disposition: Home Clinical Impression: Costochondritis Condition: Stable Prescriptions: New hydrocodone-acetaminophen 5-325 mg tablet 1 tab PO Q8H PRN (Reason: pain (scale score 7-10)) Qty: 7 0RF No Action hydroxychloroquine 200 mg tablet 200 mg PO BID Qty: 60 2RF Rx Instructions: please complete your dialted eye exam if not done dicyclomine 10 mg capsule 10 mg PO QID Qty: 100 0RF Rx Instructions: PRN for abdominal cramp ondansetron 4 mg tablet,disintegrating 4 mg PO Q6H PRN (Reason: nausea and vomiting) Qty: 14 0RF cholecalciferol (vitamin D3) 1,250 mcg (50,000 unit) capsule 50,000 unit PO .qweek Qty: 14 0RF Discharge Orders: Discharge ED (Routine); Ordered 10/27/22 Ordered By: Amaury Lyons Referrals: Jose Mccabe MD [Primary Care Provider] - Discharge Diet: Usual diet Discharge Activity: Increase activity as tolerated Patient Instructions: Costochondritis (ED) Activity Restrictions/Additional Instructions: Activity as tolerated. Drink plenty of water. Take naproxen 500 mg 1 tablet twice a day for pain and inflammation. Do not use ibuprofen while using this medication. You can use [id number] Tylenol for further pain relief. Use ice and heat for further pain relief. Use hydrocodone for severe pain. Follow- up with primary care in 3 to 5 days for recheck. Most often costochondritis will resolve within 7 to 10 days. If you start running a fever, or start having severe shortness of breath return to the ER. Coding Level of Care Code ED Byproducts Operator for Huma Morse
--- NOTE | 2022-10-27 20:41 | XRR_ITS ---
PROCEDURE INFORMATION: Exam: XR Left Ribs with PA Chest Exam date and time: 10/27/2022 8:48 PM Age: 27 years old Clinical indication: Chest wall pain; Left; Additional info: Left anterior rib pain, nausea 3 days, no injury TECHNIQUE: Imaging protocol: Radiologic exam of the left ribs with PA chest. Views: 3 views COMPARISON: CR XR chest 2V* [id number] 06/09/2020 4:25 PM FINDINGS: Lungs: Unremarkable. No consolidation. Pleural spaces: Unremarkable. No pleural effusion. No pneumothorax. Heart/Mediastinum: Unremarkable. No cardiomegaly. Diaphragm: Mild elevation of the right diaphragm. Bones/joints: Unremarkable. No rib fracture identified. Soft tissues: Nipple piercings. XR/XR ribs LT mn 3V w CXR1V [id number] IMPRESSION: No acute findings.
--- NOTE | 2022-10-27 21:05 | ECG_ITS ---
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 Measurements Intervals [place] Rate: 127 P: 58 FL: 138 QRS: 33 QRSD: 84 T: -6 QT: 335 QTc: 489 Interpretive Statements SINUS TACHYCARDIA POSSIBLE ANTERIOR MYOCARDIAL INFARCTION , OF INDETERMINATE AGE [30 ms Q WAVE IN V3/V4, OR R < 0.2 mV IN V4] Nonspecific T wave changes Compared to ECG 01/11/2020 23:25:28 Myocardial infarct finding now present T-wave abnormality no longer present Electronically Signed On 10-27-2022 22:24:55 TELEPHONE DIRECTORY DELIVERER by Krish Roldan M.D. [id number]
[2022-10-27 21:18] LABS: Basophils % 0.3 %; Eosinophils # 0.1 10^3/uL (0.0-0.8); Eosinophils % 0.6 %; Hematocrit 39.4 % (37.0-47.0); Hemoglobin 12.9 g/dL (11.5-15.3); Lymphocytes # 2.9 10^3/uL (0.8-4.8); Lymphocytes % 21.8 %; Mean Corpuscular HGB Conc 32.7 g/dL (30.0-36.0); Mean Corpuscular Hemoglobin 27.4 pg (28.0-34.0); Mean Corpuscular Volume 83.7 fl (81-99); Mean Platelet Volume 9.4 fL (7.4-10.4); Monocytes # 1.3 10^3/uL (0.2-0.9); Monocytes % 9.4 %; Neutrophils # 9.11 10^3/uL (1.8-7.7); Neutrophils % 67.6 %; Nucleated Red Blood Cells % 0 %; Platelet Count 400 10^3/cmm (130-400); Red Blood Count 4.71 10^6/uL (4.1-5.3); Red Cell Distribution Width 12.4 % (12.1-15.1); White Blood Count 13.5 10^3/uL (4.0-10.0)
[2022-10-27 21:31] LABS: Erythrocyte Sedimentation Rate 10 mm/hr (0-15)
[2022-10-27] MEDS: HYDROcodone-acetaminophen 5-325 mg Tablet 1 TAB PO (21:33)
[2022-10-27 21:35] LABS: D Dimer 0.45 ug/mIFEU (0-0.59)
[2022-10-27 21:41] LABS: Troponin T (5th) Once 6 ng/L (0-10)
[2022-10-27 21:48] LABS: Alanine Aminotransferase 64 U/L (0-33); Albumin Level 4.3 g/dL (3.5-5.2); Alkaline Phosphatase 112 U/L (35-105); Aspartate Amino Transferase 30 U/L (0-32); Blood Urea Nitrogen 9 mg/dL (6-20); C Reactive Protein 24.9 mg/L (0.0-4.9); Calcium 9.6 mg/dL (8.5-10.5); Carbon Dioxide 24 mmol/L (22-29); Chloride 100 mmol/L (98-107); Globulin 3.8 g/dL (1.3-4.6); Glucose 90 mg/dL (65-115); Lipase 37 U/L (13-60); Osmolality Calculated 282 mOsm/kg (285-295); Sodium 137 mmol/L (136-145); Total Bilirubin 0.2 mg/dL (0.15-1.2); Total Protein 8.1 g/dL (6.6-8.7)
[2022-10-27 22:14] VITALS: BP 138/102; PULSE 120; RESP 16; O2SAT 94
== END 2022-10-27 22:14 | disposition home or self-care (01) ==
PROVIDERS: Emergency Provider Nurse Practitioner Family; PCP Family Medicine
DX: M94.0 Chondrocostal junction syndrome [Tietze] (principal)
CPT/HCPCS: 71101; 80053; 83690; 84443; 84484; 85025; 85378; 85651; 86140; 93005; 99285

== ENCOUNTER 2023-02-08 14:48 | Outpatient (CLI) | payer OTHER, MEDICAID, SELFPAY ==
[2023-02-08 15:44] LABS: Basophils # 0.1 10^3/uL (0.0-0.1); Basophils % 0.4 %; Eosinophils # 0.1 10^3/uL (0.0-0.8); Eosinophils % 0.6 %; Hematocrit 37.1 % (37.0-47.0); Hemoglobin 12.6 g/dL (11.5-15.3); Lymphocytes # 2.7 10^3/uL (0.8-4.8); Lymphocytes % 24.2 %; Mean Corpuscular Hemoglobin 27.8 pg (28.0-34.0); Mean Corpuscular Volume 81.7 fl (81-99); Mean Platelet Volume 9.3 fL (7.4-10.4); Monocytes # 0.7 10^3/uL (0.2-0.9); Monocytes % 6.5 %; Nucleated Red Blood Cells % 0 %; Platelet Count 417 10^3/cmm (130-400); Red Blood Count 4.54 10^6/uL (4.1-5.3); Red Cell Distribution Width 13.2 % (12.1-15.1); White Blood Count 11.2 10^3/uL (4.0-10.0)
[2023-02-08 15:59] LABS: Erythrocyte Sedimentation Rate 26 mm/hr (0-15)
[2023-02-08 16:09] LABS: Alanine Aminotransferase 30 U/L (0-33); Albumin Level 4.2 g/dL (3.5-5.2); Alkaline Phosphatase 97 U/L (35-105); Anion Gap 15.6 (5-19); Aspartate Amino Transferase 25 U/L (0-32); Blood Urea Nitrogen 9 mg/dL (6-20); C Reactive Protein 3.1 mg/L (0.0-4.9); Calcium 9.6 mg/dL (8.5-10.5); Carbon Dioxide 22 mmol/L (22-29); Chloride 104 mmol/L (98-107); Globulin 3.4 g/dL (1.3-4.6); Glucose 75 mg/dL (65-115); Osmolality Calculated 283 mOsm/kg (285-295); Potassium 3.6 mmol/L (3.5-5.1); Sodium 138 mmol/L (136-145); Total Bilirubin 0.3 mg/dL (0.15-1.2); Total Protein 7.6 g/dL (6.6-8.7)
== END 2023-02-08 14:49 | disposition home or self-care (01) ==
PROVIDERS: PCP Family Medicine; Visit Provider Internal Medicine
DX: R70.0 Elevated erythrocyte sedimentation rate (principal); R76.8 Other specified abnormal immunological findings in serum
CPT/HCPCS: 36415; 80053; 85025; 85651; 86140

== ENCOUNTER → 2023-05-16 09:24 | Outpatient (BNVA) | payer BC, SELFPAY | PROVIDERS: PCP Family Medicine; Visit Provider Family Medicine | DX: J02.9 Acute pharyngitis, unspecified (principal) | CPT/HCPCS: 87071; 87880 ==

== ENCOUNTER 2023-06-22 07:45 | Day surgery (SDC) | payer BC, MEDICAID, SELFPAY ==
[2023-06-22] VITALS (7 sets, daily range): BP systolic 114–153; BP diastolic 59–96; PULSE 81–122; RESP 15–21; TEMP 36.1–36.2; O2SAT 96–100; BMI 34.0
--- NOTE | 2023-06-22 00:58 | P.HP_ITS ---
Same Day Surgery H&P Indication for Procedure/HPI DATE OF PROCEDURE: June 22, 2023 CHIEF COMPLAINT/INDICATIONFOR SURGICAL PROCEDURE: Desires permanent sterilization PREOP DIAGNOSIS: Desires permanent sterilization PLANNED PROCEDURE: Operation Date: 06/22/23 09:20 Proposed Procedures p Laparoscopic Salpingectomy(bilateral partial)(Bilateral) - Claudio Britton MD 28 y.o. Wants permanent sterilization Medications/Allergies* Allergies/Adverse Reactions 3 Allergy/AdvReac Type Severity Reaction Status Date / Time Penicillins Allergy Mild ALGY-Rash Verified 06/21/23 15:19 Pertinent History/Comorbid Conditions* Medical History (Updated 05/23/23 @ 20:00 by Jose Mccabe MD) SUZE positive Diarrhea Ds DNA antibody positive Chromatin Ab positive Hx of pulmonary embolus during Lupus Surgical History (Updated 04/28/22 @ 09:11 by Jose Mccabe MD) History of appendectomy History of placement of ear tubes Family History (Updated 05/30/23 @ 08:24 by Ramesh Emery) Kidney disease Mother Hypertension Mother Denies family history of Colon cancer Ovarian cancer Diabetes Heart disease Hyperlipidemia Breast cancer Uterine cancer Thyroid disease Stroke Social History Smoking and tobacco/nicotine status: never used tobacco/nicotine Alcohol intake: current Alcohol intake frequency: holidays/special occasions only Substance/Drug Use: never Pertinent Exam Findings alert, oriented x 3, clear to auscultation bilaterally and regular rate & rhythm Recommendations Surgery/Procedure today Coding Level of Care Code Acute Code for Chg Fwd Diagnoses Time Spent (min) 20
[2023-06-22] MEDS: sodium chloride 0.9% 1,000 ML 30 ML IV (08:29)
[2023-06-22] MEDS: scopolamine 1.5 Patch 1 PATCH TRANSDERMA (08:30)
--- NOTE | 2023-06-22 09:25 | ANES.PREANE2 ---
Pre-Anesthetic Assessment Height/Weight: Height 1.55 m Weight 81.647 kg Temp Pulse Resp BP Pulse Ox O2 Del Method 97.2 F L 81 16 153/96 99 Room Air 06/22/23 08:04 06/22/23 08:04 06/22/23 08:04 06/22/23 08:04 06/22/23 08:04 06/22/23 08:07 Preop Diagnosis: Desires permanent sterilization Operation Date: 06/22/23 09:20 Proposed Procedures p Laparoscopic Salpingectomy(bilateral partial)(Bilateral) - Claudio Britton MD Familial anesthetic complications: None Was Beta Millie taken within 24 hours: N/A Was Clonidine taken within 24 hours: N/A Last intake: Intake Last Liquid Date 06/21/23 Last Liquid Time 20:00 Last Solid Date 06/21/23 Last Solid Time 20:00 Social No alcohol and No tobacco Exam alert, oriented x 3, clear to auscultation bilaterally and regular rate & rhythm Airway Mallampati: Class II Dentition: full Metabolic Morbid Obesity Anesthetic Plan ASA status: 3 Anesthesia: General Risk of > 500 ml blood loss (7ml/kg in children): No Medications/Allergies Allergies Allergy/AdvReac Type Severity Reaction Status Date / Time Penicillins Allergy Mild ALGY-Rash Verified 06/21/23 15:19 Current Medications Generic Name Dose Route Start Last Admin Trade Name Freq PRN Reason Stop Dose Admin Sodium Chloride 1,000 mls @ 30 mls/hr 06/22/23 08:00 06/22/23 08:29 Sodium Chloride 0.9% IV 06/23/23 07:59 30 mls/hr .Q24H RICARDO Administration PFSH Anesthesia Medical History SUZE positive Diarrhea Ds DNA antibody positive Chromatin Ab positive Hx of pulmonary embolus during Lupus Surgical History History of appendectomy History of placement of ear tubes Family History (Updated 05/30/23 @ 08:24 by Ramesh Emery) Mother Kidney disease Hypertension Denies family history of Colon cancer Ovarian cancer Diabetes Heart disease Hyperlipidemia Breast cancer Uterine cancer Thyroid disease Stroke Social History Smoking and tobacco/nicotine status: never used tobacco/nicotine Alcohol intake: current Alcohol intake frequency: holidays/special occasions only Substance/Drug Use: never Female Reproductive History Date of last menstrual period: 05/23/23 Data Anesthesia Cardiac Studies: No Data to Display
--- NOTE | 2023-06-22 09:45 | W.PM.OPSUD ---
Surgery/Procedure H&P Update DATE OF PROCEDURE: June 22, 2023 DATE H&P PERFORMED: 06/22/23 H&P UPDATE INFORMATION: I have reviewed H&P completed within last 30 days, I have examined patient prior to procedure and No changes to prior documentation PREOP DIAGNOSIS: Desires permanent sterilization PRIMARY INDICATION FOR PROCEDURE: desires permanent sterilization PLANNED PROCEDURE: Operation Date: 06/22/23 09:20 Proposed Procedures p Laparoscopic Salpingectomy(bilateral partial)(Bilateral) - Claudio Britton MD
--- NOTE | 2023-06-22 11:15 | ANE.PACU2 ---
Inpatient post-anesthesia follow up: Airway intact: Yes Vital signs: Temperature 97 F Pulse Rate 98 Respiratory Rate 18 Blood Pressure 136/81 Pulse Oximetry 99 Oxygen Delivery Me thod Room Air Oxygen Flow Rate Fraction of Inspir ed Oxygen Hydration adequate: Yes Nausea and vomiting: No Pain level: 1 Mental status: Baseline
--- NOTE | 2023-06-22 11:38 | P.OP_ITS ---
Operative Report Date of procedure: June 22, 2023 Pre-op diagnosis: desires permanent sterilization Post-op diagnosis: same Post-op findings: normal uterus, tubes, and ovaries Procedure done: laparoscopic bilateral partial salpingectomy Implants: none Specimens removed/disposition: bilateral partial fallopian tube segments Surgeon: Claudio Britton MD Anesthesia: General Estimated blood loss (mL): 5 Complications: none Condition: stable Disposition: PACU Brief History: 28 y.o. Wants permanent sterilization Now scheduled for laparoscopic bilateral partial salpingectomy Procedure: Informed consent was obtained. The patient was taken to the OR and placed on the table. General endotracheal anesthesia was induced. The patient was then placed in dorsolithotomy position. The abdomen and perineum were then prepped and draped in the usual fashion. A maldonado catheter was placed. A 5 mm subumbilical skin incision was made. A 5 mm trocar with sheath was then inserted into the peritoneal cavity under direct visualization with the laparoscope. After confirming intraperitoneal position, pneumoperitoneum was achieved. Two separate 5 mm incisions were made in the right and left mid-quadrants. 5 mm trocars with sheaths were then inserted into the peritoneal cavity under direct visualization with the laparoscope. The right fallopian tube was then identified to its fimbrial end. Starting at the fimbrial end, the mesosalpinx was then coagulated and cut using the Ligasure device. A 3-4 cm portion of the right fallopian tube was excised and removed via one of the ports. This was sent to pathology. There was no bleeding seen. Similarly, the left fallopian tube was identified to its fimbrial end. A 3-4 cm portion of the left fallopian tube was excised and removed, sent to pathology. There was no bleeding. All instruments were then removed from the peritoneal cavity after the pneumoperitoneum was allowed to escape. The skin incisions were closed using 3- O chromic in subcuticular fashion. Dermabond was applied. The patient was then placed supine and awakened, taken the the PACU in good condition.
[2023-06-22 12:00] LABS: OR HCG Qualitative Urine Negative (Negative)
== END 2023-06-22 11:50 | disposition home or self-care (01) ==
PROVIDERS: Anesthesiology; PCP Family Medicine; Visit Provider Obstetrics & Gynecology
PROC: (CPT 58661; principal; 2023-06-22 09:10)
DX: Z30.2 Encounter for sterilization (principal); E66.01 Morbid (severe) obesity due to excess calories; Z68.34 Body mass index [BMI] 34.0-34.9, adult
CPT/HCPCS: 58661; 81025; 84703; 88302; J1100; J1170; J1200; J1885; J2250; J2405; J2704; J2710; J3010; J3490; J7030

== ENCOUNTER 2023-08-08 16:38 | Outpatient (CLI) | payer MEDICAID, SELFPAY ==
[2023-08-08 17:23] LABS: Basophils % 0.4 %; Eosinophils # 0.1 10^3/uL (0.0-0.8); Eosinophils % 1.4 %; Hematocrit 35.5 % (36-47); Lymphocytes # 2.8 10^3/uL (0.8-4.8); Lymphocytes % 29.6 %; Mean Corpuscular HGB Conc 32.7 g/dL (30-55); Mean Corpuscular Hemoglobin 27.7 pg (27-33); Mean Corpuscular Volume 84.7 fl (85-98); Mean Platelet Volume 9.6 fL (7.4-10.4); Monocytes # 0.8 10^3/uL (0.2-0.9); Monocytes % 8.9 %; Neutrophils # 5.63 10^3/uL (1.8-7.7); Neutrophils % 59.4 %; Nucleated Red Blood Cells % 0 %; Platelet Count 417 10^3/cmm (157-399); Red Blood Count 4.19 10^6/uL (3.85-5.65); Red Cell Distribution Width 12.8 % (12.1-15.1); White Blood Count 9.48 10^3/uL (3.29-11.43)
[2023-08-08 17:26] LABS: Erythrocyte Sedimentation Rate 5 mm/hr (0-15)
[2023-08-08 17:49] LABS: Alanine Aminotransferase 31 U/L (0-33); Albumin Level 4.3 g/dL (3.5-5.2); Alkaline Phosphatase 103 U/L (35-105); Anion Gap 15.7 (5-19); Aspartate Amino Transferase 28 U/L (0-32); Blood Urea Nitrogen 14 mg/dL (6-20); C Reactive Protein 5.4 mg/L (0.0-4.9); Calcium 9.1 mg/dL (8.5-10.5); Carbon Dioxide 21 mmol/L (22-29); Chloride 105 mmol/L (98-107); Globulin 3.3 g/dL (1.3-4.6); Glomerular Filtration Rate 101.1 mL/min (90-130); Glucose 94 mg/dL (65-115); Osmolality Calculated 286 mOsm/kg (285-295); Potassium 3.7 mmol/L (3.5-5.1); Sodium 138 mmol/L (136-145); Total Bilirubin 0.2 mg/dL (0.15-1.2); Total Protein 7.6 g/dL (6.6-8.7)
== END 2023-08-08 16:39 | disposition home or self-care (01) ==
PROVIDERS: PCP Family Medicine; Visit Provider Internal Medicine
DX: Z09 Encounter for follow-up examination after completed treatment for conditions other than malignant neoplasm (principal); I10 Essential (primary) hypertension; R70.0 Elevated erythrocyte sedimentation rate
CPT/HCPCS: 36415; 80053; 85025; 85651; 86140

== ENCOUNTER → 2023-08-09 13:47 | Outpatient (BNVA) | payer MEDICAID, SELFPAY | PROVIDERS: PCP Family Medicine; Visit Provider Internal Medicine | DX: R70.0 Elevated erythrocyte sedimentation rate; R76.8 Other specified abnormal immunological findings in serum | CPT/HCPCS: 99214 ==

== ENCOUNTER → 2023-10-23 14:43 | Outpatient (BNVA) | payer BC, MEDICAID, SELFPAY | PROVIDERS: PCP Family Medicine; Visit Provider Obstetrics & Gynecology | DX: N92.6 Irregular menstruation, unspecified (principal) | CPT/HCPCS: 81025 ==

== ENCOUNTER → 2024-10-02 11:49 | Outpatient (BNVA) | payer BC, SELFPAY | PROVIDERS: PCP Family Medicine; Visit Provider Family Medicine | DX: R76.8 Other specified abnormal immunological findings in serum (principal); M35.1 Other overlap syndromes; Z51.81 Encounter for therapeutic drug level monitoring | CPT/HCPCS: 80053; 85025; 85651; 86038; 86141; 86431 ==